=== PATIENT | female | born 1980 | race Caucasian/White ===

== ENCOUNTER → 2024-05-28 | Outpatient (CLI) | payer BC, SELFPAY ==
[2024-05-28 10:11] LABS: Absolute Lymphocyte Count 1.73 X10^3/uL (0.83-4.51); Absolute Neutrophil Count 4.9 X10^3/uL (2.0-7.7); Basophil# 0.07 X10^3/uL; Basophil% 0.9 % (0-1); Eosinophil# 0.17 X10^3/uL; Eosinophils% 2.3 % (0-5); Hematocrit 44.1 % (37-47); Hemoglobin 14.7 g/dL (12.0-15.0); Lymphocyte # 1.73 X10^3/ul (0.83-4.51); Lymphocyte % 23.3 % (19-41); Mean Corp Hgb Conc 33.3 g/dL (32-36); Mean Corpuscular Hgb 30.7 pg (27.0-32.0); Mean Corpuscular Volume 92.1 fL (81-99); Mean Platelet Vol. 10.5 fl (6.2-12.0); Monocyte# 0.51 X10^3/uL; Monocyte% 6.9 % (0-10); NRBC Flagged by Analyzer 0 % (0-5); Neutrophil # 4.92 X10^3/uL (2.7-7.7); Neutrophil % 66.1 % (47-70); Platelet Count 289 K/mm3 (150-450); RBC Distribution Width CV 12.7 % (11.6-14.6); RBC Distribution Width SD 43.1 fl (35.1-43.9); Red Blood Count 4.79 M/mm3 (4.2-5.4); White Blood Count 7.4 K/mm3 (4.4-11.0)
[2024-05-28 10:57] LABS: Vitamin D,25 Hydroxy 53.4 ng/mL
[2024-05-28 11:11] LABS: ALB/GLOB Ratio 1.2 RATIO (0.9-2.4); AST(SGOT) 11 U/L (15-37); Alanine Aminotransfer ALT/SGPT 15 U/L (13-56); Albumin, Serum 3.7 g/dL (3.2-5.0); Alkaline Phosphatase 50 U/L (45-117); Anion Gap 7 (5-15); BUN 16 mg/dL (7-18); BUN/Creat Ratio 18.5 RATIO (10-20); Calcium,Total 8.9 mg/dL (8.5-10.1); Chloride 104 mmol/L (98-107); Cholesterol 172 mg/dL (200); Creatinine, Serum 0.87 mg/dL (0.55-1.02); EST Glomerular Filtration Rate 76 mL/min (>60); Est Glom Filt Rate - Afr Amer 92 mL/min (>60); Free T3 2.9 pg/mL (2.18-3.98); Globulin 3.2 g/dL (2.2-4.2); Glucose 77 mg/dL (74-106); High Density Lipoprotein 79 mg/dL; Potassium 3.7 mmol/L (3.5-5.1); Protein, Total 6.9 g/dL (6.4-8.2); Sodium Level 137 mmol/L (136-145); T4 Free Direct 1.29 ng/dL (0.76-1.46); Thyroid Stim Hormone (TSH) 0.73 uIU/mL (0.358-3.74); Triglycerides 83 mg/dL; Very Low Density Lipoprotein 17 mg/dL (5-40)
== END | disposition home or self-care (01) ==
PROVIDERS: PCP Family Medicine; Referring Provider Family Medicine; Visit Provider Family Medicine
DX: Z00.00 Encounter for general adult medical examination without abnormal findings (principal); E03.9 Hypothyroidism, unspecified
CPT/HCPCS: 36415; 80053; 80061; 82306; 84439; 84443; 84481; 85025

== ENCOUNTER → 2024-06-09 | Outpatient (CLI) | payer BC, SELFPAY ==
--- NOTE | 2024-06-09 13:29 | US_ITS ---
STUDY: ULTRASOUND BREAST - RIGHT REASON FOR EXAM: Female, 43 years old. Right breast lump. TECHNIQUE: Axial and longitudinal images of the RIGHT breast were performed with a high resolution ultrasound transducer. # OF IMAGES: 60 COMPARISON: Comparison is made with prior mammogram done earlier today. FINDINGS: RIGHT Breast: The lateral aspect of the right breast was examined with ultrasound. There is a 1.5 cm x 1.1 cm x 0.9 cm cyst at the 1:00 position of the breast at 4 cm from the nipple. Adjacent to this, there is no millimeter by 6 mm x 4 mm cyst. IMPRESSION: The palpable lump corresponds to 1.5 cm x 1.1 cm x 0.9 cm cyst at the 1:00 position of the breast at 4 cm from the nipple. ASSESSMENT CATEGORY: BIRADS Category 2: Benign. A letter regarding these results will be sent to the patient by the facility within 30 days. Electronically Signed: Alvaro Acharya MD at 14:28 EDT , STUDY: ULTRASOUND BREAST - LEFT REASON FOR EXAM: Female, 43 years old. Palpable lump left breast. TECHNIQUE: Axial and longitudinal images of the LEFT breast were performed with a high resolution ultrasound transducer. # OF IMAGES: 60 COMPARISON: Comparison is made with prior mammogram done earlier today. FINDINGS: LEFT Breast: The palpable lump corresponds to 1.7 cm x 1.5 cm x 1.2 cm cyst at the 1:00 position of the breast at 5 cm from the nipple. There is also evidence of a 1.3 cm x 1 cm x 0.6 cm cyst at the 1:00 position of the breast at 4 cm from the nipple. US/Breast Limited Unilateral IMPRESSION: 2 cysts are seen at the 1:00 position of the breast as described. ASSESSMENT CATEGORY: BIRADS Category 2: Benign. A letter regarding these results will be sent to the patient by the facility within 30 days. Electronically Signed: Alvaro Acharya MD at 14:29 EDT ,
--- NOTE | 2024-06-09 13:42 | BI_ITS ---
MAMMOGRAPHY - BILATERAL DIAGNOSTIC REASON FOR EXAM: Female, 43 years old. Bilateral breast lumps. PERTINENT HISTORY: Mother with breast cancer. Grandmother with breast cancer. Aunt with breast cancer. TECHNIQUE: Digital bilateral breast steve (3D mammographic acquisition) in the CC and MLO projections. 2-D mediolateral oblique (MLO) and craniocaudad (CC) views of both breasts were obtained. CAD: Full Field Digital Mammography with Computer Added Detection was performed. COMPARISON: Comparison is made with prior outside examination July 10, 2022. FINDINGS: Breast Composition: The breasts are extremely dense, which lowers the sensitivity of mammography. There is a 1.4 cm x 1.5 cm well-defined nodule in the deep slightly upper lateral aspect of the left breast. There is also evidence of a 1.9 cm x 1.7 cm well-defined nodule in the anterior slightly upper aspect of the right breast. Correlation with ultrasound is recommended. No other significant abnormalities are identified. BI/DIAG MAMM W/CAD, BILAT IMPRESSION: Bilateral breast nodules as described. Relation with ultrasound is recommended. ASSESSMENT CATEGORY: BIRADS Category 0: Incomplete. Need additional imaging evaluation. A letter regarding these results will be sent to the patient by the facility within 30 days. Approximately 10% of breast cancers are not detected by mammography. A normal mammogram should not delay biopsy of a clinically suspicious abnormality. Electronically Signed: Alvaro Acharya MD at 8:44 EDT ,
== END | disposition home or self-care (01) ==
LOC: OPBI 12:38
PROVIDERS: PCP Family Medicine; Referring Provider Family Medicine; Visit Provider Family Medicine
DX: Z00.00 Encounter for general adult medical examination without abnormal findings (principal); N60.01 Solitary cyst of right breast; Z80.3 Family history of malignant neoplasm of breast
CPT/HCPCS: 76642; 77062; 77066; G0279

== ENCOUNTER 2024-06-21 15:09 | Emergency (ER) | payer BC, SELFPAY ==
[2024-06-21] VITALS (8 sets, daily range): BP systolic 126–148; BP diastolic 70–93; PULSE 56–81; RESP 12–21; TEMP 36.4–36.6; O2SAT 98–100
--- NOTE | 2024-06-21 15:13 | EX.ED.DYSGE1 ---
HPI History of Present Illness Chief Complaint: Stroke Alert PFSH PFSH Allergy/AdvReac Type Severity Reaction Status Date / Time levocetirizine (From Xyzal) Allergy Unknown PT UNABLE Verified 06/21/24 15:17 TO RESPOND-NEEDS F/U Social History Smoking Status: Never smoker EXAM Physical Exam Const Vital Signs: 06/21/24 15:12 06/21/24 15:15 06/21/24 15:17 Temperature 97.6 F L Temperature Source Oral Pulse Rate 56 L 56 L Respiratory Rate 12 12 Blood Pressure 126/70 H 126/75 H Blood Pressure Mean 88 92 Pulse Ox 98 100 98 Oxygen Delivery Method Room Air Room Air Room Air 06/21/24 15:25 06/21/24 15:45 06/21/24 16:15 Temperature Temperature Source Pulse Rate 77 79 81 Respiratory Rate 21 H 19 H 18 Blood Pressure 139/91 H 148/93 H 138/91 H Blood Pressure Mean 107 111 106 Pulse Ox 100 100 99 Oxygen Delivery Method Room Air Room Air Room Air 06/21/24 17:00 06/21/24 17:10 Temperature 97.8 F Temperature Source Pulse Rate 78 78 Respiratory Rate 18 18 Blood Pressure 128/77 H 128/77 H Blood Pressure Mean 94 94 Pulse Ox 98 98 Oxygen Delivery Method Room Air MDM MDM MDM Narrative Medical decision making narrative: HISTORY OF PRESENT ILLNESS: 43-year-old female presents with left arm weakness and loss of sensation. Last known well was 10 PM on 06/20/2024. States last time she felt normal was before she went to bed present 10 PM last night. Notes family history of stroke. Denies personal history of hypertension, hyperlipidemia, type 2 diabetes, seizure. Denies history of atrial fibrillation. Denies any chest pain or shortness of breath. Denies any palpitations. REVIEW OF SYSTEMS: Pertinent positives: Left arm numbness, weakness Pertinent negatives: Headache, chest pain, palpitations PHYSICAL EXAM: Nursing triage notes reviewed, Vital signs reviewed Constitutional: please see mdm HENT: MMM Eyes: Pupils equal round and reactive to light, Extraocular muscles intact Neck: No stridor, no JVD, full neck ROM Lungs: Clear to auscultation, No wheezing or rales. No increased work of breathing, no conversational dyspnea, no accessory muscle use, no nasal flaring. No respiratory distress noted Heart: Regular rate and rhythm, No murmurs, No rubs and No gallops, 2+ distal pulses (radial, femoral, posterior tibial) in all extremities Abdomen: Soft, there is no tenderness, rigidity, rebound or guarding, no obvious peritoneal signs, no palpable pulsatile abdominal masses, no auscultated abdominal bruit : No CVAT Extremities: No edema Neuro: Alert, oriented to person place and time, answers questions appropriate, no visual field defects, no extraocular muscle palsy, noted drift in left upper extremity, decree sensation left upper extremity, NIH of 2. No ataxia, Skin: No rash or lesions noted MEDICAL DECISION MAKING: Chief Complaint: Left upper extremity weakness, left upper extremity numbness External records reviewed: no recent advanced imaging Factors affecting care: no drug use Social determinants of health: History obtained from others: Consults: Stroke neurology, stroke radiology, internal medicine MDM Narrative: Patient was initially hemodynamically stable, afebrile and nontoxic-appearing. Initial NIH of 2 for weakness of left lower extremity and decrease in station in left upper extremity. The patient was not a candidate for TNK as her last known well was greater than 4 and half hours prior to presentation. I considered the following differential diagnosis: CVA, TIA, ICH, focal seizure, Yuriy's paralysis I obtained a broad lab and imaging workup to further elucidate the etiology the patient complaints. ALL IMAGES (IF OBTAINED) HAVE BEEN PERSONALLY REVIEWED AND INTERPRETED BY MYSELF. CT scan of the brain shows no evidence of ICH or mass CTA of the head and neck shows Findings suggestive of right-sided AVM arising from the branches of the M2 segment of the right middle cerebral artery with drainage into the ipsilateral venous structures. Correlation with MRI recommended. EKG with normal sinus rhythm, left axis deviation, normal intervals, no STEMI The patient was not a candidate for thrombectomy as she had no large vessel occlusion noted on imaging. Discussed the case with stroke neurologist who recommended transfer if patient was amenable to undergo MRI of the head and neck with without contrast, MRA possible neurosurgical consultation. Patient initially felt reticent about being transferred to [place] because of her obligations as a single mother however she was able to find childcare in the form of her mother to take care of her child. She felt more comfortable by being transferred. Spoke to [facility] transfer center to arrange transport. The patient and/or family, caregivers express understanding. The patient and/or family, caregivers agrees with the plan. Shared decision making: I will have a discussion with the patient and or visitors regarding risk/benefits of further testing or admission. They will be made aware of of the risk/benefits inherent in this decision they will be given the opportunity to voice understanding. Total critical care time today provided was at least 35 minutes. This excludes separately billable procedures. Critical care time (if documented) is secondary to the patient having high probability of clinically significant/life threatening deterioration in the patient's condition which required my urgent intervention. Impression: 1. Left upper extremity weakness 2. Left upper extremity numbness 3. Intracranial AVM Dispo: Transfer to [facility] stroke [facility] This note was generated with [employer] dictation software. It may contain incorrect words, spelling, and punctuation that were not noted in review of the chart prior to signing. Lab Data Labs: Laboratory Results - last 24 hr 06/21/24 06/21/24 15:13 15:15 WBC 7.8 RBC 4.56 Hgb 13.7 Hct 40.8 MCV 89.5 MCH 30.0 MCHC 33.6 RDW Std Deviation 40.5 RDW Coeff of Liang 12.4 Plt Count 287 MPV 10.4 Immature Gran % (Auto) 0.500 Neut % (Auto) 69.4 Lymph % (Auto) 20.6 Rowan % (Auto) 7.5 Eos % (Auto) 1.2 Baso % (Auto) 0.8 Absolute Neuts (auto) 5.4 Absolute Lymphs (auto) 1.61 Nucleated RBC % 0 PT 12.5 INR 0.9 APTT 29.4 Sodium 140 Potassium 4.3 Chloride 106 Carbon Dioxide 27.0 Anion Gap 7 BUN 8 Creatinine 0.73 Estim Creat Clear Calc 84.69 Est GFR (MDRD) Af Amer 113 Est GFR (MDRD) Non-Af 93 BUN/Creatinine Ratio 11.0 Glucose 91 Calcium 8.7 Troponin I High Sens 3 POC Glucose 97 Radiography Diagnostic Testing: Clinical Impression(s) from Imaging Studies Brain CT 06/21/24 15:15 IMPRESSION: Normal unenhanced CT scan of the brain. N.B. : The above Results were Read Back by Alvaro Acharya MD to Brendan Regalado and understanding confirmed on 06/21/2024 15:26:43 (ET). Electronically Signed: Alvaro Acharya MD at 15:28 EDT , ADDENDUM: 06/21/24 1535 IMPRESSION: Normal unenhanced CT scan of the brain. N.B. : The above Results were Read Back by Alvaro Acharya MD to Brendan Regalado and understanding confirmed on 06/21/2024 15:26:43 (ET). Electronically Signed: Alvrao Acharya MD at 15:28 EDT , Head/Neck CTA 06/21/24 15:20 IMPRESSION: Findings suggestive of right-sided AVM arising from the branches of the M2 segment of the right middle cerebral artery with drainage into the ipsilateral venous structures. Correlation with MRI recommended. N.B. : The above Results were Read Back by Alvaro Acharya MD to Brendan Regalado and understanding confirmed on 06/21/2024 15:39:54 (ET). Electronically Signed: Alvaro Acharya MD at 15:41 EDT , ADDENDUM: 06/21/24 1548 IMPRESSION: Findings suggestive of right-sided AVM arising from the branches of the M2 segment of the right middle cerebral artery with drainage into the ipsilateral venous structures. Correlation with MRI recommended. N.B. : The above Results were Read Back by Alvaro Acharya MD to Brendan Regalado and understanding confirmed on 06/21/2024 15:39:54 (ET). Electronically Signed: Alvaro Acharya MD at 15:41 EDT , Chest X-Ray 06/21/24 16:05 IMPRESSION: Normal x-ray examination of the chest. Electronically Signed: Jarvis Tate MD at 16:37 EDT , Discharge Plan Triage Chief Complaint: Stroke Alert ED Provider: Brendan Regalado Dx/Rx/DC Orders Primary Care Provider: Adán Jiménez Referrals: Adán Jiménez MD [Primary Care Provider] - Print Language: Swedish
--- NOTE | 2024-06-21 15:15 | CT_ITS ---
STUDY: CT HEAD STROKE PROTOCOL W/O CONTRAST INJECTION REASON FOR EXAM: Female, 43 years old. Neuro deficit, acute, stroke suspected RADIATION DOSAGE (If Supplied By Facility): CTDIvol = ( 44.99 ) mGy, DLP = ( 796.11 ) mGycm TECHNIQUE: Transaxial CT imaging of the brain was performed without administration of intravenous contrast material. Individualized dose optimization techniques were used for this CT. COMPARISON: No relevant priors. FINDINGS: Normal soft tissue structures. Normal calvarium. Normal size ventricles and extra-axial spaces for the patient''s age. Normal white matter tracts of the cerebral hemispheres. Normal basal ganglia and thalami. Normal brainstem. Normal cerebellum. There is no intracranial hemorrhage. There are no findings of an acute ischemic infarction. Normal visualized paranasal sinuses. ASPECT score: 10 CT/STROKE Brain/Head without Cont IMPRESSION: Normal unenhanced CT scan of the brain. N.B. : The above Results were Read Back by Alvaro Acharya MD to Brendan Regalado and understanding confirmed on 06/21/2024 15:26:43 (ET). Electronically Signed: Alvaro Acharya MD at 15:28 EDT ,
--- NOTE | 2024-06-21 15:15 | EKG12_ITS ---
Test Reason : STROKE ALERT Blood Pressure : / mmHG Vent. Rate : 074 BPM Atrial Rate : 074 BPM P-R Int : 176 ms QRS Dur : 092 ms QT Int : 400 ms P-R-T Axes : 062 038 056 degrees QTc Int : 444 ms Poor data quality, interpretation may be adversely affected Normal sinus rhythm Possible Left atrial enlargement Incomplete right bundle branch block Borderline ECG Confirmed by Wyatt Purcell ([id number]), senior technical editor JANNA MEHTA ([id number]) on 06/22/2024 2:11:06 PM Referred By: Confirmed By:Wyatt Purcell
--- NOTE | 2024-06-21 15:20 | CT_ITS ---
STUDY: CTA HEAD AND NECK WITH CONTRAST REASON FOR EXAM: Female, 43 years old. Left arm weakness, numbness RADIATION DOSAGE (If Supplied By Facility): CTDIvol = ( 17.88 ) mGy, DLP = ( 540.24 ) mGycm TECHNIQUE: CT angiography was performed with a multi-detector CT scanner. Data acquisition was obtained from the skull base through the vertex following intravenous administration of IV 100mL Isovue-370. MIP images were reconstructed from the axial data set. Post-processing of the angiographic images was performed, with multiplanar reformation and 3D reconstruction. Individualized dose optimization techniques were used for this CT. COMPARISON: No relevant priors. FINDINGS: The patient is status post bilateral thyroidectomy. Normal bilateral petrous carotid arteries. Normal right cavernous carotid artery with a normal supraclinoid bifurcation. Normal left cavernous carotid artery with a normal supraclinoid bifurcation. Normal right A1 segments of the anterior cerebral artery. Normal left A1 segments of the anterior cerebral artery. Normal intact anterior communicating artery (ACOM). Normal bilateral A2 segments of the anterior cerebral arteries. Normal right M1 and M2 segments of the middle cerebral arteries, with a normal M1 bifurcation. I suspect an arteriovenous malformation arising from branches of the M2 segment of the right middle cerebral artery with drainage into posterior venous structure. Correlation with the MRI recommended. Normal left M1 and M2 segments of the middle cerebral arteries, with a normal M1 bifurcation. Normal right posterior communicating artery (PCOM). Normal left posterior communicating artery (PCOM). Normal bilateral vertebral arteries. Normal basilar artery with a normal basilar bifurcation. The visualized bilateral superior cerebellar (SCA) arteries are normal. Normal bilateral P1, P2 and visualized P3 segments of the posterior cerebral arteries. There is no demonstrated aneurysm of the [place] of [place]. There is no demonstrated abnormality of the visualized brain. AORTIC ARCH: Normal visualized aortic arch. Normal origins of the brachiocephalic, left common carotid, and left subclavian arteries. RIGHT CAROTID ARTERIES: Normal right common carotid artery (CCA). Normal right common carotid bulb. Normal origin of the right internal carotid (ICA) artery without a hemodynamically significant stenosis. Normal visualized cervical portion of the right internal carotid artery. Normal origin of the right external carotid artery (ECA). LEFT CAROTID ARTERIES: Normal left common carotid artery (CCA). Normal left common carotid bulb. Normal origin of the left internal carotid (ICA) artery without a hemodynamically significant stenosis. Normal visualized cervical portion of the left internal carotid artery. Normal origin of the left external carotid artery (ECA). VERTEBRAL ARTERIES: Normal bilateral vertebral arteries. CT/STROKE CTA Head AND Neck W/Con IMPRESSION: Findings suggestive of right-sided AVM arising from the branches of the M2 segment of the right middle cerebral artery with drainage into the ipsilateral venous structures. Correlation with MRI recommended. N.B. : The above Results were Read Back by Alvaro Acharya MD to Brendan Regalado and understanding confirmed on 06/21/2024 15:39:54 (ET). Electronically Signed: Alvaro Acharya MD at 15:41 EDT ,
[2024-06-21 15:25] LABS: Absolute Lymphocyte Count 1.61 X10^3/uL (0.83-4.51); Absolute Neutrophil Count 5.4 X10^3/uL (2.0-7.7); Basophil# 0.06 X10^3/uL; Basophil% 0.8 % (0-1); Eosinophil# 0.09 X10^3/uL; Eosinophils% 1.2 % (0-5); Hematocrit 40.8 % (37-47); Hemoglobin 13.7 g/dL (12.0-15.0); Lymphocyte # 1.61 X10^3/ul (0.83-4.51); Lymphocyte % 20.6 % (19-41); Mean Corp Hgb Conc 33.6 g/dL (32-36); Mean Corpuscular Volume 89.5 fL (81-99); Mean Platelet Vol. 10.4 fl (6.2-12.0); Monocyte# 0.59 X10^3/uL; Monocyte% 7.5 % (0-10); NRBC Flagged by Analyzer 0 % (0-5); Neutrophil # 5.43 X10^3/uL (2.7-7.7); Neutrophil % 69.4 % (47-70); Platelet Count 287 K/mm3 (150-450); RBC Distribution Width CV 12.4 % (11.6-14.6); RBC Distribution Width SD 40.5 fl (35.1-43.9); Red Blood Count 4.56 M/mm3 (4.2-5.4); White Blood Count 7.8 K/mm3 (4.4-11.0)
[2024-06-21 15:33] LABS: Bedside Glucose 97 mg/dL (74-106)
[2024-06-21 15:46] LABS: Anion Gap 7 (5-15); BUN 8 mg/dL (7-18); Calcium,Total 8.7 mg/dL (8.5-10.1); Chloride 106 mmol/L (98-107); Creatinine, Serum 0.73 mg/dL (0.55-1.02); EST Glomerular Filtration Rate 93 mL/min (>60); Est Glom Filt Rate - Afr Amer 113 mL/min (>60); Estimated Creatinine Clearance 84.69 ml/min; Glucose 91 mg/dL (74-106); Potassium 4.3 mmol/L (3.5-5.1); Sodium Level 140 mmol/L (136-145); Troponin-I HS 3 pg/mL (3.0-54.0)
[2024-06-21 15:50] LABS: International Normalized Ratio 0.9; Prothrombin Time (Protime)PT. 12.5 SECONDS (11.7-14.9)
[2024-06-21 15:51] LABS: Partial Thromboplast Time 29.4 Seconds (24.1-36.2)
--- NOTE | 2024-06-21 16:05 | RAD_ITS ---
STUDY: X-RAY CHEST REASON FOR EXAM: Female, 43 years old. Neuro deficit, acute, stroke suspected TECHNIQUE: Single AP portable view of the chest. COMPARISON: None. FINDINGS: The lungs are clear and expanded. There is no demonstrated pleural abnormality. Normal size heart. Normal mediastinum and lizzy. Normal visualized pulmonary arteries. Normal visualized aortic arch and descending thoracic aorta. Normal visualized thoracic spine. Normal visualized ribs, clavicles, and shoulders. There is no demonstrated abnormality of the visualized soft tissue structures of the upper abdomen. RAD/Chest 1 View IMPRESSION: Normal x-ray examination of the chest. Electronically Signed: Jarvis Tate MD at 16:37 EDT ,
[2024-06-21] MEDS: Acetaminophen 325 MG Tablet 650 MG PO (16:44)
[2024-06-21] MEDS: Metoclopramide 10 MG/2 ML Vial 5 MG IV (16:44)
--- NOTE | 2024-06-21 17:20 | ED.RN ---
Report called to Mike LUCAS at [facility]. Physician's ETA [id number]
== END 2024-06-21 17:43 | disposition short-term general hospital (02) ==
PROVIDERS: Emergency Provider Emergency Medicine; PCP Family Medicine; Visit Provider Emergency Medicine
DX: Q28.2 Arteriovenous malformation of cerebral vessels (principal); R29.898 Other symptoms and signs involving the musculoskeletal system; R29.702 NIHSS score 2; R20.0 Anesthesia of skin; Z79.82 Long term (current) use of aspirin; Z79.890 Hormone replacement therapy; Z79.899 Other long term (current) drug therapy
CPT/HCPCS: 70450; 70496; 70498; 71045; 80048; 82962; 84484; 85025; 85610; 85730; 93005; 96374; 96375; 99285; Q9967; A4216

== ENCOUNTER 2024-08-19 17:30 | Outpatient (RCR) | payer BC, SELFPAY ==
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
--- NOTE | 2024-08-03 18:16 | HP.PTREVAL_ITS ---
Re-Evaluation Intro: Dr. Adán Jiménez MD, It has been my pleasure to treat OZIEL ABREU over the last 5 visits for L shoulder pain. Please see the progress note below for an update on the physical therapy plan of care! Subjective Subjective: Feel more pain in neck and shoulders. 2/10 paoin is still the number. Life is normal, activities carry on no matter what. Not a workout person. No appointment. Careful with posture at work. Moving furniture at home can make her worse but has to move couch. Objective Objective/Function: 70 L rotation with tightness L, 75 r rotation without a problem , 48 extension with slight R deviation still present. UE AROM WNL and strength 4 r Er adn 4- L, a little pain, IR 4/5, overcompensates in scapula prtraction adn elevation. Shoulder flexion hurts in anterior shoul kwame B and 4-/5 strength. Overall quickdash much better but pain persists and patient does not like to workout and never has. Trouble deciphering b/w DOMS and her pain. Plan Plan Plan: Would like to continue POC for 3 more weeks 2x/week and focus on STM neck and posterior scap mm for 15 minutes AND progression to more aggressive upper half and scapular strength to HEP(prone and phase 3 shoulder and neck isometrics to HEP please) Will need insurance apporval to do so. Balance/Gait/Functional tests Balance/Special Test Scores Quick DASH Score: 12.5000 Goals Goals Goal 1:: Pain in neck and scap 2/10 at worst and 75% better Goal Time Frame: 4-6 Weeks Goal 2:: patient able to resist scap adn g-h elevation without increased pain Goal Time Frame: 4-6 Weeks Goal 3:: I appropriate HEP to minimize future problems. Goal Time Frame: 4-6 Weeks Goal 4:: quickdash score 15 or better Goal Time Frame: 4-6 Weeks Anticipated Interventions Anticipated Interventions Patient/Client Instruction: Educate patient on: Condition and Plan of Care For the Purpose of:: To decrease pain, To improve nutrient delivery to tissue, To improve muscle performance and motor function and To increase tolerance to activity/condition/position Therapeutic Exercise to Include: Strength training, Postural training, Flexibilty training, Passive ROM and Active ROM For the Purpose of:: To decrease pain, To increase ROM, To improve nutrient delivery to tissue, To improve ability to perform ADL's, To increase tolerance to activity/condition/position and To improve gait and locomotor functions Manual Therapy Techniques to Include: Trigger point massage, Mobilization and Soft tissue mobilization For the Purpose of:: To decrease pain, To increase ROM, To improve nutrient delivery to tissue and To improve muscle performance and motor function Thermo therapy (hot pack): Yes For the Purpose of:: To decrease pain Re-Evaluation Ending Re-evaluation ending: Please do not hesitate to contact me at [phone] by phone or if you have questions or concerns regarding this new plan of care! Sincerely, Noah Chandler, DPT, OCS, CSCS
--- NOTE | 2024-08-24 10:19 | HP.PTDCSUM ---
Discharge Summary D/C summary: It has been my pleasure to treat OZIEL ABREU referred by Dr. Adán Jiménez MD, with the diagnosis of L shoulder pain for a total of 7 visit(s). Discharge Date: 08/24/24 Please see the following information for a summary of their discharge status. Subjective Subjective: Patient arrived to PT questioning if she can still continue with PT. Stated she is having angioplasty surgery, waiting on Dr to schedule it. Informed patient I would speak to supervising PT. Pain L UT: Pain Intensity (Out of 10): 2 R UT: Pain Intensity (Out of 10): 2 bilat SH: Pain Intensity (Out of 10): 2 Overall Improvement % Improvement: 10 Objective Objective/Function: Added some prone cervical strengthening and progressed to HEP with pics. Patient demo good understanding. Will have PT call patient Goals Goal 1:: Pain in neck and scap 2/10 at worst and 75% better Goal Progress: Not Progressing Goal 2:: patient able to resist scap adn g-h elevation without increased pain Goal 3:: I appropriate HEP to minimize future problems. Goal Progress: Progressing Goal 4:: quickdash score 15 or better Plan Plan: called patient, she is having an angioplasty and will find out when on September 02. Therapy not helping and wishes to stop and deal with surgery. I will discontinue from my care at this time at her request without official recheck. D/C Information Discharge Comments: see Plan d/c sentence: If there are questions or concerns regarding this patient's physical therapy, please feel free to call me at [phone]. Thank you for the referral of this patient. Sincerely, Noah Chandler, DPT, OCS, CSCS Balance/Gait/Functional tests Balance/Special Test Scores Quick DASH Score: 12.5000 Improvement % Improvement: 10
== END 2024-08-19 19:00 | disposition home or self-care (01) ==
LOC: PT 17:30
PROVIDERS: PCP Family Medicine; Referring Provider Family Medicine; Visit Provider Family Medicine
DX: M25.512 Pain in left shoulder (principal)
CPT/HCPCS: 97110; 97140; 97161

== ENCOUNTER → 2024-11-05 | Outpatient (CLI) | payer BC, SELFPAY ==
[2024-11-05 16:04] LABS: Free T3 2.8 pg/mL (2.18-3.98); T4 Free Direct 1.41 ng/dL (0.76-1.46); Thyroid Stim Hormone (TSH) 0.156 uIU/mL (0.358-3.740)
== END | disposition home or self-care (01) ==
LOC: MFPLAB 11:58
PROVIDERS: PCP Family Medicine; Referring Provider Family Medicine; Visit Provider Family Medicine
DX: E03.9 Hypothyroidism, unspecified (principal)
CPT/HCPCS: 36415; 84439; 84443; 84481

== ENCOUNTER → 2024-12-31 | Outpatient (CLI) | payer BC, SELFPAY ==
[2024-12-31 15:17] LABS: Absolute Lymphocyte Count 1.76 X10^3/uL (0.83-4.51); Absolute Neutrophil Count 5.8 X10^3/uL (2.0-7.7); Basophil# 0.06 X10^3/uL; Basophil% 0.7 % (0-1); Eosinophil# 0.04 X10^3/uL; Eosinophils% 0.5 % (0-5); Hematocrit 44.8 % (37-47); Lymphocyte # 1.76 X10^3/ul (0.83-4.51); Lymphocyte % 21.3 % (19-41); Mean Corp Hgb Conc 33.5 g/dL (32-36); Mean Corpuscular Hgb 30.5 pg (27.0-32.0); Mean Corpuscular Volume 91.1 fL (81-99); Mean Platelet Vol. 10.5 fl (6.2-12.0); Monocyte# 0.59 X10^3/uL; Monocyte% 7.1 % (0-10); NRBC Flagged by Analyzer 0 % (0-5); Neutrophil # 5.78 X10^3/uL (2.7-7.7); Neutrophil % 69.8 % (47-70); Platelet Count 342 K/mm3 (150-450); RBC Distribution Width CV 12.5 % (11.6-14.6); Red Blood Count 4.92 M/mm3 (4.2-5.4); White Blood Count 8.3 K/mm3 (4.4-11.0)
[2024-12-31 15:58] LABS: ALB/GLOB Ratio 1.2 RATIO (0.9-2.4); AST(SGOT) 13 U/L (15-37); Alanine Aminotransfer ALT/SGPT 18 U/L (13-56); Albumin, Serum 3.9 g/dL (3.2-5.0); Alkaline Phosphatase 52 U/L (45-117); Anion Gap 7 (5-15); BUN 11 mg/dL (7-18); BUN/Creat Ratio 12.8 RATIO (10-20); Calcium,Total 9.2 mg/dL (8.5-10.1); Chloride 104 mmol/L (98-107); Creatinine, Serum 0.86 mg/dL (0.55-1.02); EST Glomerular Filtration Rate 77 mL/min (>60); Est Glom Filt Rate - Afr Amer 93 mL/min (>60); Globulin 3.3 g/dL (2.2-4.2); Glucose 82 mg/dL (74-106); Magnesium 2.2 mg/dL (1.6-2.6); Potassium 3.7 mmol/L (3.5-5.1); Protein, Total 7.2 g/dL (6.4-8.2); Sodium Level 137 mmol/L (136-145)
[2025-01-03 15:08] LABS: Endomysial Antibody IgA Negative (Negative); Immunoglobulin A 144 mg/dL (87-352); t-Transglutaminase IgA <2 U/mL (0-3)
== END | disposition home or self-care (01) ==
LOC: MFPLAB 11:55
PROVIDERS: PCP Family Medicine; Referring Provider Family Medicine; Visit Provider Family Medicine
DX: R19.7 Diarrhea, unspecified (principal); K58.9 Irritable bowel syndrome, unspecified
CPT/HCPCS: 36415; 80053; 82784; 83516; 83735; 85025; 86255

== ENCOUNTER → 2025-05-02 | Outpatient (CLI) | payer BC, SELFPAY ==
[2025-05-02 16:35] LABS: Free T3 1.7 pg/mL (2.18-3.98)
== END | disposition home or self-care (01) ==
LOC: MFPLAB 12:11
PROVIDERS: PCP Family Medicine; Referring Provider Family Medicine; Visit Provider Family Medicine
DX: E03.9 Hypothyroidism, unspecified (principal)
CPT/HCPCS: 36415; 84439; 84443; 84481

== ENCOUNTER → 2025-06-16 | Outpatient (CLI) | payer BC, SELFPAY ==
[2025-06-16 18:41] LABS: Free T3 1.8 pg/mL (2.18-3.98)
== END | disposition home or self-care (01) ==
LOC: MFPLAB 15:22
PROVIDERS: PCP Family Medicine; Referring Provider Family Medicine; Visit Provider Family Medicine
DX: E03.9 Hypothyroidism, unspecified (principal)
CPT/HCPCS: 36415; 84439; 84443; 84481

== ENCOUNTER → 2025-08-01 | Outpatient (CLI) | payer BC, SELFPAY ==
[2025-08-01 17:39] LABS: Hematocrit 42.4 % (37-47); Hemoglobin 14.4 g/dL (12.0-15.0); Immature Granulocytes Count 0.100 X10^3/uL (0.0-0.0); Mean Corp Hgb Conc 34.0 g/dL (32-36); Mean Corpuscular Volume 91.0 fL (81-99); Mean Platelet Vol. 10.8 fl (6.2-12.0); NRBC Flagged by Analyzer 0 % (0-5); Platelet Count 374 K/mm3 (150-450); RBC Distribution Width CV 11.5 % (11.6-14.6); RBC Distribution Width SD 37.8 fl (35.1-43.9); Red Blood Count 4.66 M/mm3 (4.2-5.4); White Blood Count 9.9 K/mm3 (4.4-11.0)
[2025-08-01 18:13] LABS: AST(SGOT) 38 U/L (<=31); Alanine Aminotransfer ALT/SGPT 58 U/L (<=34); Albumin, Serum 4.1 g/dL (3.5-5.0); Alkaline Phosphatase 80 U/L (35-104); Anion Gap 11 (5-15); BUN 15 mg/dL (4-19); BUN/Creat Ratio 18.3 RATIO (10-20); Calcium,Total 9.3 mg/dL (7.6-11.0); Carbon Dioxide 26.5 mmol/L (21.0-32.0); Chloride 102 mmol/L (98-108); Free T3 4.5 pg/mL (2.18-3.98); Globulin 2.7 g/dL (2.2-4.2); Glucose 77 mg/dL (70-99); Potassium 3.8 mmol/L (3.3-5.1)
[2025-08-03 04:07] LABS: Prealbumin 24 mg/dL (12-34)
== END | disposition home or self-care (01) ==
LOC: MFPLAB 16:09
PROVIDERS: PCP Family Medicine; Visit Provider Family Medicine
DX: E03.9 Hypothyroidism, unspecified (principal); R63.4 Abnormal weight loss
CPT/HCPCS: 36415; 80053; 84134; 84439; 84443; 84481; 85025

== ENCOUNTER → 2025-08-08 | Outpatient (CLI) | payer BC, SELFPAY ==
[2025-08-08 17:01] LABS: AST(SGOT) 75 U/L (<=31); Alanine Aminotransfer ALT/SGPT 114 U/L (<=34); Albumin, Serum 3.8 g/dL (3.5-5.0); Alkaline Phosphatase 70 U/L (35-104); Anion Gap 10 (5-15); BUN 14 mg/dL (4-19); BUN/Creat Ratio 19.7 RATIO (10-20); Calcium,Total 8.7 mg/dL (7.6-11.0); Carbon Dioxide 25.4 mmol/L (21.0-32.0); Chloride 102 mmol/L (98-108); Ferritin 86 ng/mL (22-378); Globulin 2.4 g/dL (2.2-4.2); Glucose 79 mg/dL (70-99); Potassium 3.4 mmol/L (3.3-5.1); Vitamin B12 479 pg/mL (180-914)
[2025-08-08 17:27] LABS: FOLATES,SERUM (FOLIC ACID) 28.40 ng/mL (4.60-34.80)
[2025-08-08 17:32] LABS: Free T3 4.7 pg/mL (2.18-3.98)
[2025-08-08 17:53] LABS: CRP < 3.00 mg/L (0.0-3.0); LDH 176 U/L (84-246)
[2025-08-11 15:08] LABS: Pancreatic Elastase, Fecal > 800 (>200)
== END | disposition home or self-care (01) ==
LOC: LAB 14:38
PROVIDERS: PCP Family Medicine; Referring Provider Internal Medicine Gastroenterology; Visit Provider Internal Medicine Gastroenterology
DX: R19.7 Diarrhea, unspecified (principal); E03.9 Hypothyroidism, unspecified; K58.9 Irritable bowel syndrome, unspecified
CPT/HCPCS: 36415; 80053; 82274; 82607; 82652; 82653; 82705; 82728; 82746; 82784; 82785; 82941; 83516; 83615; 83630; 83993; 84165; 84439; 84443; 84481; 85652; 86003; 86005; 86036; 86037; 86140; 86255; 86334; 86480; 86671; 87177; 87209; 87329; 87506

== ENCOUNTER → 2025-09-02 | Outpatient (CLI) | payer BC, SELFPAY ==
--- NOTE | 2025-09-02 09:22 | US_ITS ---
PROCEDURE: ABDOMEN LIMITED N/A REASON FOR EXAM: ELEVATED LFTS TECHNIQUE: Procedure Code: USABDL Modality: US Procedure: ABDOMEN LIMITED COMPARISON: None FINDINGS: Liver: Grossly normal size and echotexture. Gallbladder: Surgically absent. Common bile duct: Normal measuring 4.4 mm . Pancreas: Normal Other: Visualized portions of the right kidney are unremarkable. 1 cm x 0.8 cm x 0.8 cm cyst in the lower pole of the right kidney. No right upper quadrant ascites. US/Abdomen Limited IMPRESSION: Unremarkable examination. Incidental note is made of a 1 cm x 0.8 cm x 0.8 cm cyst in the inferior pole o f the right kidney. [id number]
== END | disposition home or self-care (01) ==
LOC: US 09:21
PROVIDERS: PCP Family Medicine; Referring Provider Internal Medicine Gastroenterology; Visit Provider Internal Medicine Gastroenterology
DX: R79.89 Other specified abnormal findings of blood chemistry (principal)
CPT/HCPCS: 76705

== ENCOUNTER → 2025-09-21 | Outpatient (CLI) | payer BC, SELFPAY ==
--- NOTE | 2025-09-21 12:48 | RAD_ITS ---
PROCEDURE: KNEE 4 OR MORE VIEWS 09/21/2025 REASON FOR EXAM: R KNEE TECHNIQUE: Procedure Code: RADKN Modality: DX Procedure: KNEE 4 OR MORE VIEWS Laterality: Right FINDINGS: No acute fracture or dislocation. No significant bone or joint abnormality. No focal soft tissue swelling. RAD/Knee 4 or More Views IMPRESSION: As above. Reading Location: [id number]
--- NOTE | 2025-09-21 12:48 | RAD_ITS ---
PROCEDURE: LUMBAR SPINE 2 OR 3 VIEWS 09/21/2025 REASON FOR EXAM: R LEG PARESTHESIA TECHNIQUE: Procedure Code: RADSPLL Modality: DX Procedure: LUMBAR SPINE 2 OR 3 VIEWS FINDINGS: No evidence of acute fracture or dislocation. The disc space and vertebral body heights are maintained. Normal alignment. RAD/Lumbar Spine 2 or 3 Views IMPRESSION: No significant abnormality. Reading Location: [id number]
== END | disposition home or self-care (01) ==
LOC: MTRAD 12:45
PROVIDERS: PCP Family Medicine; Referring Provider Family Medicine; Visit Provider Family Medicine
DX: M25.561 Pain in right knee (principal); M54.40 Lumbago with sciatica, unspecified side
CPT/HCPCS: 72100; 73564

== ENCOUNTER → 2025-10-24 | Outpatient (CLI) | payer BC, SELFPAY ==
[2025-10-24 16:03] LABS: Ferritin 67 ng/mL (22-378); Iron 189 ug/dL (50-170); Iron Binding Capacity,Total 336 ug/dL (250-450); Iron Binding Capacity,Unsat 147 ug/dL (228-428)
[2025-10-27 13:08] LABS: Vitamin D 1,25-Dihydroxy 61.9 pg/mL (24.8-81.5)
[2025-10-28 17:08] LABS: Anti-Smooth Muscle ABS 9 Units (0-19); Copper, Serum or Plasma 134 ug/dL (80-158); HEPATITIS B SURFACE AG Negative (Negative); Hep C Antibodies Non Reactive (Non Reactive)
== END | disposition home or self-care (01) ==
LOC: MFPLAB 11:52
PROVIDERS: PCP Family Medicine; Visit Provider Internal Medicine Gastroenterology
DX: R79.89 Other specified abnormal findings of blood chemistry (principal); R63.4 Abnormal weight loss; R19.7 Diarrhea, unspecified
CPT/HCPCS: 36415; 80074; 82390; 82525; 82652; 82728; 83516; 83540; 83550